=== PATIENT | male | born 1975 | race Caucasian/White ===

== ENCOUNTER 2017-12-20 02:46 | Day surgery (SDC) | payer OTHER ==
[2017-12-20] VITALS (7 sets, daily range): BP systolic 93–114; BP diastolic 58–75
[~2017-12-20] VITALS: Ht 180.3 cm; Wt 73.9 kg
[~2017-12-20 02:46] MED LIST: ASPIRIN; GOLYTE PO; LACT1CAP6 PO; LEVO750T44 PO; METR-160 PO; ONDA4TAB PO; SULF-198 PO
[2017-12-20] MEDS ORDERED: NORMOSOL R SOLN(*) 1000 ML BAG 1,000 ML IV PRN (08:35)
[2017-12-20] MEDS ORDERED: LIDOCAINE/SOD BICARB 8.4% SYR ID ONE (08:35)
[2017-12-20] MEDS ORDERED: MIDAZOLAM 2 MG/2 ML VIAL IVP PRN (08:35)
--- NOTE | 2017-12-20 11:11 | Short(Outpt) Discharge Summary ---
Discharge Summary Reason for Hosp/Final Diag: (1) Diarrhea Status: Chronic Hospital Course & Plan: Colonoscopy with biopsies completed without problems. Departure Discharge to: Home, Self Care Discharge Instructions Home Meds Active Scripts Peg/Electrolytes (GOLYTELY SOLUTION) 4,000 Ml Soln, 1 GAL PO ONCE, #1 GAL 0 Refills Prov:TRISTIN BOWMAN MD 11/21/17 Reported Medications Lactobacillus Combination No.4 (PROBIOTIC) 1 Each Capsule, 1 EACH PO DAILY, CAPSULE 12/12/17 Diet: Regular Activity: As Tolerated Special Instructions: Your colonoscopy was completed without any problem. I didn't find any inflammation or other abnormalities but I performed biopsies throughout your colon. My office will call you in the next week to let you know what the biopsies show and to check in with you to see if you are still feeling well. I recommend that your next colonoscopy be at 52 years old for screening. Problem Qualifiers (1) Diarrhea: Diarrhea type: presumed infectious Qualified Codes: R19.7 - Diarrhea, unspecified TRISTIN BOWMAN MD Dec 20, 2017 11:11
== END 2017-12-20 12:09 | disposition home or self-care (01) ==
LOC: OR 02:46
PROVIDERS: ATTEND Surgery
DX: R19.7 Diarrhea, unspecified (principal)
CPT/HCPCS: 88305